=== PATIENT | female | born 1990 | race Caucasian/White ===

== ENCOUNTER 2020-09-15 09:50 | Observation (INO) | payer OTHER ==
[~2020-09-15] VITALS: Ht 154 cm; Wt 70.3 kg
[~2020-09-15 09:50] MED LIST: LEVO100 PO; PREN-154 PO
[2020-09-15 10:21] VITALS: BP 115/73
[2020-09-15 11:54] LABS: FREE T4 (FREE THYROXINE) 0.92 ng/dL (0.76-1.46); THYROID STIMULATING HORMONE 0.23 uIU/mL (0.36-3.74)
[2020-09-15 13:28] LABS: COVID AG,FIA SOURCE NASOPHARYNGEAL
== END 2020-09-15 12:36 | disposition home or self-care (01) ==
LOC: 4S 09:50
PROVIDERS: ADMIT Obstetrics & Gynecology; ATTEND Obstetrics & Gynecology
DX: Z34.93 Encounter for supervision of normal pregnancy, unspecified, third trimester (principal); Z20.828 Contact with and (suspected) exposure to other viral communicable diseases; Z3A.35 35 weeks gestation of pregnancy
CPT/HCPCS: 59025; 76805; 84439; 84443; 87426; 99219

== ENCOUNTER 2020-10-05 16:05 | Observation (INO) | payer OTHER ==
[2020-10-06 00:08] LABS: COVID AG,FIA SOURCE NASOPHARYNGEAL
== END 2020-10-05 16:40 | disposition home or self-care (01) ==
LOC: 4S 16:05
PROVIDERS: ADMIT Obstetrics & Gynecology Obstetrics; ATTEND Obstetrics & Gynecology Obstetrics
DX: Z34.93 Encounter for supervision of normal pregnancy, unspecified, third trimester (principal); Z20.828 Contact with and (suspected) exposure to other viral communicable diseases; Z3A.38 38 weeks gestation of pregnancy
CPT/HCPCS: 87426; 99219

== ENCOUNTER 2020-10-07 06:22 | Inpatient (IN) | payer OTHER ==
[~2020-10-07] VITALS: Ht 154.9 cm; Wt 73.7 kg
[2020-10-07] MEDS ORDERED: METOCLOPRAMIDE HCL 5 MG/ML 2 ML VIAL IVP ONE (06:30)
[2020-10-07] MEDS ORDERED: RINGERS SOLUTION,LACTATED 1,000 ML IV ONE ×2 (06:30→07:36)
[2020-10-07] MEDS ORDERED: CITRIC ACID/SODIUM CITRATE 30 ML SOLUTION UDCUP PO ONE (06:30)
[2020-10-07 07:08] VITALS: BP 127/77
[2020-10-07] MEDS ORDERED: BUPIVACAINE HCL/DEX-WATER/PF 0.75% 2 ML AMP ITH ONE (07:36)
[2020-10-07] MEDS ORDERED: SODIUM CHLORIDE 0.9% 1,000 ML ONE (07:36)
[2020-10-07] MEDS ORDERED: BUPIVACAINE HCL/PF 0.25% 10 ML VIAL ONE (08:05)
[2020-10-07] MEDS ORDERED: BUPIVACAINE LIPOSOME/PF 1.3%-13.3MG/ML SUSPENSION 10 ML VIAL INJ ONE (08:30)
[2020-10-07 08:37] LABS: BASOPHILS % (AUTO) 0.2 % (0.0-2.0); EOSINOPHILS % (AUTO) 0.4 % (1.0-6.0); HEMATOCRIT 34.8 % (36-46); LYMPHOCYTES # (AUTO) 1.4 K/uL (1.0-4.8); MEAN CORPUSCULAR HGB CONC 34.6 G/dL (31.0-37.0); MEAN CORPUSCULAR VOLUME 93 fL (80-100); MONOCYTES # (AUTO) 0.6 K/uL (0.1-1.0); MONOCYTES % (AUTO) 7.7 % (2.0-9.0); NEUTROPHILS # (AUTO) 5.8 K/uL (1.8-7.7); NEUTROPHILS % (AUTO) 73.7 % (40.0-70.0); PLATELET COUNT (AUTO) 156 K/uL (150-450); RED BLOOD CELL COUNT(AUTO) 3.76 MIL/uL (4.00-5.20); RED CELL DISTRIBUTION WIDTH 12.9 % (11.5-14.5)
[2020-10-07] MEDS ORDERED: MISOPROSTOL 100 MCG TABLET ONE ×2 (08:45→08:47)
[2020-10-07] MEDS ORDERED: LANOLIN 7 GM OINTMENT TP PRN (11:00)
[2020-10-07] MEDS ORDERED: OXYTOCIN 30 UNITS/LACT RINGERS 500 ML IV ONE (11:00)
[2020-10-07] MEDS ORDERED: OxyCODONE HCL/ACETAMINOPHEN 5-325 MG TABLET PO PRN (11:00)
[2020-10-07] MEDS ORDERED: METHYLERGONOVINE MALEATE 0.2 MG/ML VIAL ONE (11:32)
[2020-10-07] MEDS: RINGERS SOLUTION,LACTATED 1,000 ML IV SCH ×2 (11:35→20:28)
[2020-10-07] MEDS ORDERED: EPHEDrine SULFATE 50 MG/ML VIAL IM ONE (12:00)
[2020-10-07] MEDS ORDERED: DiphenhydrAMINE HCL 50 MG/ML VIAL IVP PRN (12:00)
[2020-10-07] MEDS ORDERED: FentaNYL CITRATE PF 100 MCG/2 ML VIAL IVP PRN (12:00)
[2020-10-07] MEDS ORDERED: MORPHINE SULFATE/PF 0.5 MG/ML 10 ML AMP IVP ONE (12:00)
[2020-10-07] MEDS ORDERED: 0.9% SODIUM CHLORIDE 10 ML VIAL IVP ONE (12:00)
[2020-10-07] MEDS ORDERED: NALOXONE HCL 0.4 MG/ML VIAL IVP PRN (12:00)
[2020-10-07] MEDS ORDERED: OXYTOCIN 10 UNITS/ML VIAL IM ONE (12:00)
[2020-10-07] MEDS ORDERED: FentaNYL CITRATE PF 100 MCG/2 ML VIAL IVP ONE (12:00)
[2020-10-07] MEDS ORDERED: ONDANSETRON HCL 4 MG/2 ML VIAL IVP PRN (12:00)
[2020-10-07] MEDS ORDERED: NALBUPHINE HCL 10 MG/ML VIAL IVP PRN ×2 (12:00)
[2020-10-07] MEDS ORDERED: MORPHINE SULFATE 10 MG/ML SYRINGE IVP PRN (12:00)
[2020-10-07] MEDS ORDERED: ONDANSETRON HCL 4 MG/2 ML VIAL IVP ONE (12:00)
[2020-10-07] MEDS: ACETAMINOPHEN 1000 MG/ISO-OSM 100 ML IV SCH ×2 (13:04→18:53)
[2020-10-07] MEDS ORDERED: OXYGEN THERAPY IH SCH ×2 (20:00)
[2020-10-07] MEDS: MAGNESIUM HYDROXIDE SUSPENSION 30 ML UDCUP PO SCH (21:00)
[2020-10-07] MEDS ORDERED: KETOROLAC TROMETHAMINE 30 MG/ML VIAL IVP PRN (23:15)
[2020-10-08 07:15] LABS: BASOPHILS % (AUTO) 0.2 % (0.0-2.0); EOSINOPHILS % (AUTO) 0.3 % (1.0-6.0); HEMATOCRIT 28.3 % (36-46); HEMOGLOBIN 9.8 g/dL (12.0-16.0); LYMPHOCYTES # (AUTO) 1.6 K/uL (1.0-4.8); LYMPHOCYTES % (AUTO) 15.1 % (22.0-44.0); MEAN CORPUSCULAR HEMOGLOBIN 32.2 pg (26.0-34.0); MEAN CORPUSCULAR HGB CONC 34.7 G/dL (31.0-37.0); MEAN CORPUSCULAR VOLUME 93 fL (80-100); MONOCYTES # (AUTO) 0.7 K/uL (0.1-1.0); NEUTROPHILS % (AUTO) 77.4 % (40.0-70.0); PLATELET COUNT (AUTO)-OB 136 K/uL (150-450); RED BLOOD CELL COUNT(AUTO) 3.05 MIL/uL (4.00-5.20); RED CELL DISTRIBUTION WIDTH 12.6 % (11.5-14.5)
[2020-10-08] MEDS: OxyCODONE HCL/ACETAMINOPHEN 5-325 MG TABLET PO PRN ×2 (07:59→21:00)
[2020-10-08] MEDS: MAGNESIUM HYDROXIDE SUSPENSION 30 ML UDCUP PO SCH ×2 (08:28→21:00)
[2020-10-08] MEDS: IBUPROFEN 800 MG TABLET PO PRN ×2 (09:09→18:19)
[2020-10-08] MEDS ORDERED: IBUPROFEN 800 MG TABLET PO PRN (11:00)
[2020-10-09] MEDS: IBUPROFEN 800 MG TABLET PO PRN ×3 (00:39→22:34)
[2020-10-09] MEDS: MAGNESIUM HYDROXIDE SUSPENSION 30 ML UDCUP PO SCH ×2 (09:14→22:35)
[2020-10-09] MEDS: OxyCODONE HCL/ACETAMINOPHEN 5-325 MG TABLET PO PRN ×3 (09:15→22:34)
[2020-10-09] MEDS ORDERED: INFLUENZA VIRUS VACCINE QVS 2020-21 (6MO+)/PF 60 MCG/0.5 ML SYRINGE IM ONE (21:15)
[2020-10-10] MEDS ORDERED: PERCT PO (08:27)
[2020-10-10] MEDS ORDERED: IBUP-2071 PO (08:28)
[2020-10-10] MEDS ORDERED: DOCU-275 PO (08:28)
[2020-10-10] MEDS ORDERED: FERR-89 PO (08:29)
[2020-10-10] MEDS: IBUPROFEN 800 MG TABLET PO PRN (08:40)
[2020-10-10] MEDS: MAGNESIUM HYDROXIDE SUSPENSION 30 ML UDCUP PO SCH (08:45)
== END 2020-10-10 13:05 | disposition home or self-care (01) | DRG 788 ==
LOC: OBSVTOIN 06:22 → 4S 06:22
PROVIDERS: ADMIT Obstetrics & Gynecology; ATTEND Obstetrics & Gynecology
PROC: 10D00Z1 Extraction of Products of Conception, Low, Open Approach (ICD-10-PCS; principal; 2020-10-07)
DX: O82 Encounter for cesarean delivery without indication (principal); Z3A.39 39 weeks gestation of pregnancy; Z37.0 Single live birth
CPT/HCPCS: 86850; 86900; 86901; 87081; 90686; A9575; J0131; J0690; J1885; J2210; J2274; J2405; J2590; J2765; J3010; J3490; J7030; J7120